=== PATIENT | female | born 1975 | race Caucasian/White ===

== ENCOUNTER 2016-08-25 06:31 | Inpatient (IN) | payer OTHER ==
[2016-08-25] MEDS ORDERED: LR 1,000 ML IV PRN (07:06)
[2016-08-25] MEDS ORDERED: TERBUTALINE SULFATE 1 MG/ML VIAL IV PRN (07:06)
[2016-08-25] MEDS ORDERED: OXYTOCIN/RINGERS LACTATE 1,000 ML IV PRN (07:06)
[2016-08-25] MEDS ORDERED: LIDOCAINE 1% 30 ML SDV ONE (07:34)
[2016-08-25] MEDS ORDERED: OXYTOCIN 10 UNIT/ML VIAL ONE (07:35)
[2016-08-25] MEDS ORDERED: AMMONIA AROMATIC 1 EACH AMP IH ONE (07:35)
[2016-08-25] MEDS ORDERED: MISOPROSTOL 200 MCG TAB ONE (07:35)
[2016-08-25] MEDS ORDERED: TERBUTALINE SULFATE 1 MG/ML VIAL ONE (07:35)
[2016-08-25 07:43] LABS: % IMMATURE GRANULYOCYTES 0.4 % (0.0-1.1); ABSOLUTE IMMATURE GRANULOCYTES 0.03 10^3/uL (0.00-0.10); ADD DIFF? NO; ADD MORPH? NO; ADD SCAN? NO; ATYPICAL LYMPHOCYTE FLAG 10 (0-99); FRAGMENT RBC FLAG 0 (0-99); HEMATOCRIT 36.9 % (38.0-47.0); HEMOGLOBIN 12.8 g/dL (12.6-16.3); LEFT SHIFT FLG 0 (0-99); LIPEMIA HEMOLYSIS FLAG 90 (0-99); MEAN CELL HEMOGLOBIN 31.1 pg (27.9-34.1); MEAN CELL HEMOGLOBIN CONCENTR. 34.7 g/dL (32.4-36.7); MEAN CELL VOLUME 89.8 fL (81.5-99.8); MEAN PLATELET VOLUME 12.1 fL (8.7-11.7); PLATELET CLUMPS FLAG 0 (0-99); PLATELET COUNT 161 10^3/uL (150-400); RED BLOOD CELL COUNT 4.11 10^6/uL (4.18-5.33); RED CELL DISTRIBUTION WIDTH 12.7 % (11.5-15.2)
[2016-08-25] MEDS ORDERED: PSEUDOEPHEDRINE HCL 120 MG EXT REL TAB PO ONE (08:00)
[2016-08-25] MEDS ORDERED: ACETAMINOPHEN 500 MG TAB PO ONE (08:00)
[2016-08-25] MEDS ORDERED: OXYTOCIN/LR *STANDARD DOSE PROTOCOL IV SCH (08:00)
[2016-08-25 08:13] LABS: ALANINE AMINOTRANSFERASE 22 IU/L (9-52); ASPARTATE AMINOTRANSFERASE 21 IU/L (14-46); BILIRUBIN,TOTAL 0.5 mg/dL (0.1-1.4); BILIRUBIN-CONJUGATED 0.3 mg/dL (0.0-0.5); BILIRUBIN-UNCONJUGATED 0.2 mg/dL (0.0-1.1); CREATININE 0.7 mg/dL (0.6-1.0); GLOMERULAR FILTRATION RATE > 60; LACTATE DEHYDROGENASE 442 IU/L (313-618)
--- NOTE | 2016-08-25 08:58 | OBPROG ---
OBG Progress Note Assessment/Plan: Assessment: 40 yo P1 @ 39 2/7, IOL for pre-eclampsia, doing well. Plan: 08/25/16 08:57 FWB reassuring by NST. GBS neg. [id number] elevated bp, no worrisome symptoms for severe pre-eclampsia. Epidural as desired. Subjective: 40 yo P1 @ 39 2/7, IOL for pre-eclampsia, doing well. Objective: 08/25/16 07:20 08/25/16 07:20 Patient ABO/Rh O NEGATIVE 08/25/16 07:20 Uric Acid 7.0 mg/dL (2.5-6.8) H 08/25/16 07:20 Total Bilirubin 0.5 mg/dL (0.1-1.4) 08/25/16 07:20 Conjugated Bilirubin 0.3 mg/dL (0.0-0.5) 08/25/16 07:20 Unconjugated Bilirubin 0.2 mg/dL (0.0-1.1) 08/25/16 07:20 AST 21 IU/L (14-46) 08/25/16 07:20 ALT 22 IU/L (9-52) 08/25/16 07:20 Lactate Dehydrogenase 442 IU/L (313-618) 08/25/16 07:20 130s/80s-90s - SVE Dilation (cm): 3 Effacement (%): Less than 50 Station: -2 Current Contraction Pattern: Irregular FHR (bpm): 140 FHR Pattern Variability: Moderate FHR Category: 2 Membranes: AROM Amniotic Fluid Color: Clear ICD10 Worksheet Patient Problems: Problems Problem Status Onset Mild pre-eclampsia in third trimester Acute
[2016-08-25] MEDS ORDERED: fentaNYL 2MCG/ML/BUP 0.1% RTU 100 ML BAG EP ONE (11:53)
[2016-08-25] MEDS ORDERED: BUPIVACAINE 0.25% 30 ML SDV ONE (11:53)
[2016-08-25] MEDS ORDERED: fentaNYL 100 MCG/2 ML INJ ONE (11:53)
[2016-08-25] MEDS ORDERED: LR 500 ML IV SCH (12:30)
--- NOTE | 2016-08-25 13:07 | OBPROG ---
OBG Progress Note Assessment/Plan: Assessment: 40 yo P1 @ 39 2/7, IOL for pre-eclampsia, doing well. Plan: 08/25/16 08:57 FWB reassuring by NST. GBS neg. [id number] elevated mildly, no worrisome symptoms for severe pre- eclampsia. Epidural working nicely. Expect . Subjective: 40 yo P1 @ 39 2/7, IOL for pre-eclampsia, doing well. Objective: 08/25/16 07:20 08/25/16 07:20 Patient ABO/Rh O NEGATIVE 08/25/16 07:20 Uric Acid 7.0 mg/dL (2.5-6.8) H 08/25/16 07:20 Total Bilirubin 0.5 mg/dL (0.1-1.4) 08/25/16 07:20 Conjugated Bilirubin 0.3 mg/dL (0.0-0.5) 08/25/16 07:20 Unconjugated Bilirubin 0.2 mg/dL (0.0-1.1) 08/25/16 07:20 AST 21 IU/L (14-46) 08/25/16 07:20 ALT 22 IU/L (9-52) 08/25/16 07:20 Lactate Dehydrogenase 442 IU/L (313-618) 08/25/16 07:20 140/72 - SVE Dilation (cm): 6 Effacement (%): 75 Station: -2 Current Contraction Pattern: Regular FHR (bpm): 120 FHR Pattern Variability: Moderate FHR Category: 2 Membranes: AROM Amniotic Fluid Color: Clear ICD10 Worksheet Patient Problems: Problems Problem Status Onset Mild pre-eclampsia in third trimester Acute
[2016-08-25] MEDS ORDERED: SIMETHICONE 80 MG TAB CHEW PO PRN (16:08)
[2016-08-25] MEDS ORDERED: DOCUSATE SODIUM 100 MG CAP PO PRN (16:08)
[2016-08-25] MEDS ORDERED: HYDROCODONE/APAP 5/325 TAB PO PRN (16:08)
[2016-08-25] MEDS ORDERED: HYDROCORTISONE 0.5% CREAM TP PRN (16:08)
--- NOTE | 2016-08-25 16:11 | OBPROC ---
- Labor and Delivery Onset of Contractions Date: 08/25/16 Onset of Contractions Time: 09:30 Onset of Contractions Type: Induced Rupture of Membranes Date: 08/25/16 Rupture of Membranes Time: 08:30 Rupture of Membranes Type: Artificial Amniotic Fluid Color: Clear Dilation Complete Time: 15:47 Delivery Type: Spontaneous Placenta Delivery Date: 08/25/16 Episiotomy/Laceration: 2nd Degree Repair: 3-0, Vicryl EBL: 200 ml Complications: Nuchal Cord - Medications Labor Augmentation/Induction Meds Used: Pitocin Labor Augmentation/Induction Indication: Other (Specify) (mild pre-eclalmpsia) Anesthesia: Epidural - Info Infant A Delivery Date: 08/25/16 Delivery Time: 15:56 Sex of Infant: Male Score (1 Min): 8 Score (5 Min): 9
[2016-08-25] MEDS ORDERED: METHYLERGONOVINE MAL 0.2 MG/ML INJ ONE (17:30)
[2016-08-25] MEDS: IBUPROFEN 600 MG TAB PO PRN ×2 (18:09→20:36)
[2016-08-25 20:34] VITALS: RESP 16; O2SAT 94
[2016-08-26] MEDS: IBUPROFEN 600 MG TAB PO PRN ×3 (02:12→14:49)
[2016-08-26 08:04] VITALS: BP 121/78; PULSE 67; TEMP 97.4
--- NOTE | 2016-08-26 12:21 | SOAPPROG ---
SOAP Progress Note Assessment/Plan: Assessment: PPD#1 s/p 2nd deg laceration Preeclampsia without severe features Rh neg s/p Tdap and flu vaccines hypothyroid Plan: Routine pp care Stable for discharge home this afternoon PIH precautions reviewed, check BPs at home BID, call if > 140/90 F/u in 4 weeks for wellness visit, [address] RAND for visit Rhogam to be given pending blood type Repeat TFTs Routine pp precautions reviewed 08/26/16 12:19 08/26/16 12:21 Subjective: Feeling well. No heavy bleeding. Cramping minimal. BF going well. Denies PIH symptoms. Wants to go home today Objective: Vital Signs Temp Pulse Resp BP Pulse Ox 36.3 C 67 16 121/78 H 94 08/26/16 08:03 08/26/16 08:03 08/26/16 08:03 08/26/16 08:03 08/26/16 08:03 Laboratory Results 08/25/16 07:20 08/25/16 07:20 08/25/16 08/26/16 08/27/16 05:59 05:59 05:59 Output Total 850 Balance -850 Gen: alert, awake, ambulating Breasts: soft Abd: soft, nontender, uterus firm below U Ext: no edema ICD10 Worksheet Patient Problems: Problems Problem Status Onset Mild pre-eclampsia in third trimester Acute
== END 2016-08-26 18:26 | disposition home or self-care (01) | DRG 775 ==
LOC: FLD 06:31 → FOB 18:38
PROVIDERS: ADMIT Obstetrics & Gynecology; ATTEND Obstetrics & Gynecology
DX: O14.04 Mild to moderate pre-eclampsia, complicating childbirth (principal); O70.1 Second degree perineal laceration during delivery; O09.523 Supervision of elderly multigravida, third trimester; O99.284 Endocrine, nutritional and metabolic diseases complicating childbirth; E03.9 Hypothyroidism, unspecified; O69.81X0 Labor and delivery complicated by cord around neck, without compression, not applicable or unspecified; O26.893 Other specified pregnancy related conditions, third trimester; Z67.91 Unspecified blood type, Rh negative; Z3A.39 39 weeks gestation of pregnancy; Z37.0 Single live birth
CPT/HCPCS: J2210; J2590; J3010; J3105

== ENCOUNTER → 2018-08-09 | Outpatient (CLI) | payer OTHER | LOC: FIMAGING 08:57 | PROVIDERS: ATTEND Obstetrics & Gynecology | DX: N93.9 Abnormal uterine and vaginal bleeding, unspecified (principal); N83.202 Unspecified ovarian cyst, left side ==

== ENCOUNTER → 2018-09-20 | Outpatient (CLI) | payer OTHER | LOC: FIMAGING 08:37 | PROVIDERS: ATTEND Obstetrics & Gynecology | DX: N92.6 Irregular menstruation, unspecified (principal); N83.02 Follicular cyst of left ovary ==